=== PATIENT | female | born 1955 | race Caucasian/White ===

== ENCOUNTER 2018-10-18 17:42 | Emergency (ER) | payer OTHER ==
--- NOTE | 2018-10-18 18:15 | EDPHY ---
HPI/HX/ROS/PE/MDM Narrative: CHIEF COMPLAINT: Right ankle pain HPI: This patient is a 62 year old female with history of hypothyroidism and recent diagnosis of breast cancer. She presents with right ankle pain secondary to a ski accident at [facility] earlier today. She was on her [place] run [place] the [place] and her skis twisted beneath her; the left ski popped off, but her right stayed on and her leg twisted suddenly. She felt a pop associated with this. She has considerable pain and swelling to the lateral ankle and has been unable to bear weight since the incident. She did not strike her head or lose consciousness. She denies any other trauma. She has no further complaints. REVIEW OF SYSTEMS: A comprehensive 10 system review of systems is otherwise negative aside from elements mentioned in the history of present illness and medical decision making. PMH: Hypothyroid. Recent diagnosis of breast cancer. SOCIAL HISTORY: at bedside. Visiting from [place]. PHYSICAL EXAM: General:Patient is alert, in no acute distress. Skin: Normal color. No rash. Warm and dry. Right leg: Tenderness and swelling over lateral aspect of right ankle. Neuro: Oriented x3. Normal motor function. Normal sensory function. ED Course: 62 y/o female presents with right ankle pain and swelling over the lateral ankle secondary to a fall while skiing this afternoon. Plan for x-ray for further evaluation. Reviewed x-ray. Evidence of oblique nondisplaced distal fibular fracture. Reassessed patient. Reviewed imaging studies. Plan to discharge home in good condition with ortho boot and crutches. She will follow up with an equipment sales specialist when she returns to [place]. Prescription for Percocet provided for severe pain. Discussed DVT prophylaxis given her upcoming flight; she will take ASA 325mg from now until several days after her flight. Return precautions discussed. The patient is comfortable with this plan. - Data Points Imaging Results: Imaging Impressions Ankle X-Ray 10/18/18 17:49 Impression: Oblique nondisplaced distal fibular fracture. Imaging: I viewed and interpreted images myself Medications Given: Discontinued Medications Oxycodone/Acetaminophen (Percocet 5/325mg Prepack#4) 1 btl TAKEHOME EDNOW ONE Stop: 10/18/18 18:30 Last Admin: 10/18/18 18:45 Dose: 1 btl Oxycodone/Acetaminophen (Percocet 5/325) 1 tab PO EDNOW ONE Stop: 10/18/18 19:00 Last Admin: 10/18/18 19:00 Dose: 1 tab General Time Seen by Provider: 10/18/18 18:07 Initial Vital Signs: Initial Vital Signs Temperature (C) 36.7 C 10/18/18 17:46 Heart Rate 78 10/18/18 17:46 Respiratory Rate 16 10/18/18 17:46 Blood Pressure 138/72 H 10/18/18 17:46 O2 Sat (%) 99 10/18/18 17:46 O2 Delivery Mode Room Air Allergies/Adverse Reactions: No Known Allergies Allergy (Unverified 10/18/18 17:45) Home Medications: Medication Instructions Recorded Anastrozole 10/18/18 Levothyroxine 10/18/18 oxyCODONE/APAP 5/325 [Percocet 1 - 2 tab PO Q4H PRN #20 tab 10/18/18 5/325 (*)] Departure - Departure Disposition: Home, Routine, Self-Care Clinical Impression: Fracture of distal fibula Qualifiers: Encounter type: initial encounter Fracture type: closed Fracture morphology: other fracture Laterality: right Qualified Code(s): S82.831A - Other fracture of upper and lower end of right fibula, initial encounter for closed fracture Condition: Good Instructions: Oxycodone/Acetaminophen (By mouth), Ankle Fracture (ED) Additional Instructions: Rest, ice, elevation. Take full-strength aspirin, 325mg, as directed on the packaging for the next several days including during and after your flight on Saturday. Do not combine this medication with ibuprofen. Take Percocet as prescribed as needed for severe pain. This medication is particularly helpful for sleep at night. Take a stool softener with this medication as we discussed. Follow up with an orthopedic surgeon within one week. You may follow up with an equipment sales specialist when you return home. Wear Vikram boot as directed until reevaluation. Use crutches as directed, toe-touch weightbearing if tolerated. Return to the emergency department for worsening pain, swelling, numbness, weakness or other concerns. Referrals: Taj Monroy MD [Medical Doctor] - As per Instructions Prescriptions: oxyCODONE/APAP 5/325 [Percocet 5/325 (*)] 1 - 2 tab PO Q4H PRN #20 tab PRN Reason: Pain, Severe Report Scribed for: Zohaib Jauregui Report Scribed by: Vi Braswell Date of Report: 10/18/18 Time of Report: 18:15 Physician Review and Approval Statement: Portions of this note were transcribed by an ED scribe. I personally performed the history, physical exam, and medical decision making; and confirm the accuracy of the information in the transcribed note.
[2018-10-18] MEDS ORDERED: OXYCODONE/APAP 5/325MG PREPACK#4 BTL TAKEHOME ONE (18:29)
[2018-10-18 18:48] VITALS: BP 120/71
[2018-10-18] MEDS ORDERED: OXYCODONE/APAP 5/325 TAB ONE (18:58)
[2018-10-18] MEDS ORDERED: OXYCODONE/APAP 5/325 TAB PO ONE (18:59)
== END 2018-10-18 19:04 | disposition home or self-care (01) ==
DX: S82.831A Other fracture of upper and lower end of right fibula, initial encounter for closed fracture (principal); E03.9 Hypothyroidism, unspecified; V00.321A Fall from snow-skis, initial encounter; Y93.23 Activity, snow (alpine) (downhill) skiing, snowboarding, sledding, tobogganing and snow tubing; Y92.838 Other recreation area as the place of occurrence of the external cause
CPT/HCPCS: L4386